=== PATIENT | female | born 1950 | race Caucasian/White ===

== ENCOUNTER 2021-02-08 11:09 | Inpatient (IN) ==
[2021-02-08 12:30] LABS: Basophils # 0.1 10*3/uL (0.0-0.2); Basophils % 0.5 % (0.0-0.8); Eosinophils # 0.1 10*3/uL (0.0-0.87); Hemoglobin 10.8 GM/DL (12.0-16.0); Immature Granulocytes % 0.4 %; Immature Granulocytes Absolute 0.04 #; Lymphocytes # 1.6 10*3/uL (1.4-4.0); Mean Corpuscular HGB Conc 30.9 GM/DL (32-36); Mean Corpuscular Volume 98.6 FL (87-102); Mean Platelet Volume 10.6 FL (9.6-12.0); Monocytes % 8.6 % (1.7-12.7); Neutrophils % 73.5 % (38.7-73.9); Platelet Count 371 T/CUMM (130-400); Red Blood Count 3.55 MC/CUMM (3.8-5.5); Red Cell Distribution Width 15.3 % (9.3-17.3); White Blood Count 10.2 T/CUMM (4-12)
[2021-02-08 12:52] LABS: Alanine Aminotransferase < 9 U/L (13-56); Albumin 2.2 G/DL (3.4-5.0); Alkaline Phosphatase 147 U/L (45-117); Aspartate Amino Transferase 21 U/L (0-37); Bilirubin,Total < 0.39 MG/DL (0.20-1.00); Blood Urea Nitrogen 12 MG/DL (7-18); Calcium 8.7 MG/DL (8.5-10.1); Carbon Dioxide 22 MMOL/L (21-32); Estimated Glom Filtration Rate 111 ML/MIN; Glucose 110 MG/DL (74-106); Osmolality,Calculated 270.1 MOS/KG (273-304); Potassium 4.1 MMOL/L (3.5-5.1); Sodium 135 MMOL/L (136-145); Total Protein 5.9 G/DL (6.4-8.2)
[2021-02-08] MEDS ORDERED: LEVOFLOXACIN 500 MG TABLET PO STA (13:01)
[2021-02-08] MEDS ORDERED: LEVOFLOXACIN INJ 500 MG/100 ML PREMIX IV STA (13:33)
[2021-02-08] MEDS ORDERED: ACETAMINOPHEN 325 MG TABLET PO PRN (14:58)
[2021-02-08] MEDS ORDERED: ONDANSETRON 4 MG/2 ML VIAL IV PRN (14:58)
[2021-02-08] MEDS ORDERED: ALBUTEROL/IPRATROPIUM 3 ML NEB RESP TX PRN (15:00)
[2021-02-08] MEDS: OXcarbazepine 300 MG TABLET PO SCH (20:51)
[2021-02-08] MEDS: LACTULOSE 20 GM/30 ML UDCUP PO SCH (20:51)
[2021-02-08] MEDS: OLANZapine 5 MG TABLET PO SCH (20:51)
[2021-02-08] MEDS: TOPIRAMATE 100 MG TABLET PO SCH (20:51)
[2021-02-08] MEDS: PHENobarbital 30 MG TABLET PO SCH (20:51)
[2021-02-08] MEDS: DOCUSATE SODIUM 100 MG CAPSULE PO SCH (20:51)
[2021-02-08] MEDS: busPIRone 10 MG TABLET PO SCH (20:51)
[2021-02-08] MEDS: TEMAZEPAM 7.5 MG CAPSULE PO SCH (20:52)
[2021-02-09 04:42] LABS: Basophils # 0.1 10*3/uL (0.0-0.2); Basophils % 0.7 % (0.0-0.8); Eosinophils # 0.3 10*3/uL (0.0-0.87); Eosinophils % 3.4 % (0.00-10.9); Hematocrit 33.9 VOL% (35.7-47.0); Hemoglobin 10.4 GM/DL (12.0-16.0); Immature Granulocytes % 0.4 %; Immature Granulocytes Absolute 0.03 #; Lymphocytes # 1.3 10*3/uL (1.4-4.0); Lymphocytes % 15.6 % (21.3-54.2); Mean Corpuscular HGB Conc 30.7 GM/DL (32-36); Mean Corpuscular Volume 99.7 FL (87-102); Mean Platelet Volume 10.5 FL (9.6-12.0); Monocytes % 6.4 % (1.7-12.7); Neutrophils % 73.5 % (38.7-73.9); Platelet Count 354 T/CUMM (130-400); Red Cell Distribution Width 15.4 % (9.3-17.3); White Blood Count 8.2 T/CUMM (4-12)
[2021-02-09 05:14] LABS: Bilirubin,Total 0.6 MG/DL (0.20-1.00); Calcium 8.4 MG/DL (8.5-10.1); Osmolality,Calculated 273.8 MOS/KG (273-304); Potassium 3.8 MMOL/L (3.5-5.1)
[2021-02-09] MEDS: NON-FORMULARY MEDICATION (Dimethicone-Znox-Vit A-D-Aloe [Zinc Oxide Diaper Cream] 1-10 % C TOP SCH (06:41)
[2021-02-09] MEDS: lisinopriL 5 MG TABLET PO SCH (09:22)
[2021-02-09] MEDS: CARBIDOPA/LEVODOPA 25-100 MG TABLET PO SCH ×3 (09:22→17:47)
[2021-02-09] MEDS: busPIRone 10 MG TABLET PO SCH ×2 (09:22→20:10)
[2021-02-09] MEDS: FLUoxetine 10 MG CAPSULE PO SCH (09:23)
[2021-02-09] MEDS: TOPIRAMATE 100 MG TABLET PO SCH ×2 (09:23→20:10)
[2021-02-09] MEDS: FOLIC ACID 1 MG TABLET PO SCH (09:23)
[2021-02-09] MEDS: OXcarbazepine 300 MG TABLET PO SCH ×2 (09:23→20:10)
[2021-02-09] MEDS: PANTOPRAZOLE 40 MG TABLET PO SCH (09:23)
[2021-02-09] MEDS: LACTULOSE 20 GM/30 ML UDCUP PO SCH ×2 (09:24→20:10)
[2021-02-09] MEDS: DOCUSATE SODIUM 100 MG CAPSULE PO SCH ×2 (09:24→20:10)
[2021-02-09] MEDS: PHENobarbital 30 MG TABLET PO SCH ×4 (10:40→20:10)
[2021-02-09] MEDS: OLANZapine 5 MG TABLET PO SCH (20:10)
[2021-02-09] MEDS: TEMAZEPAM 7.5 MG CAPSULE PO SCH (20:11)
[2021-02-10 06:16] LABS: Basophils # 0.1 10*3/uL (0.0-0.2); Basophils % 0.8 % (0.0-0.8); Eosinophils # 0.2 10*3/uL (0.0-0.87); Eosinophils % 3.3 % (0.00-10.9); Hematocrit 34.1 VOL% (35.7-47.0); Hemoglobin 10.8 GM/DL (12.0-16.0); Immature Granulocytes % 0.3 %; Immature Granulocytes Absolute 0.02 #; Lymphocytes # 1.5 10*3/uL (1.4-4.0); Lymphocytes % 20.7 % (21.3-54.2); Mean Corpuscular HGB Conc 31.7 GM/DL (32-36); Mean Corpuscular Volume 99.1 FL (87-102); Mean Platelet Volume 10.5 FL (9.6-12.0); Neutrophils % 67.9 % (38.7-73.9); Platelet Count 352 T/CUMM (130-400); Red Blood Count 3.44 MC/CUMM (3.8-5.5); Red Cell Distribution Width 15.5 % (9.3-17.3); White Blood Count 7.3 T/CUMM (4-12)
[2021-02-10 06:30] LABS: Alanine Aminotransferase 13 U/L (13-56); Alkaline Phosphatase 197 U/L (45-117); Aspartate Amino Transferase 39 U/L (0-37); Bilirubin,Total < 0.39 MG/DL (0.20-1.00); Blood Urea Nitrogen 16 MG/DL (7-18); Calcium 8.6 MG/DL (8.5-10.1); Carbon Dioxide 23 MMOL/L (21-32); Estimated Glom Filtration Rate 103 ML/MIN; Glucose 112 MG/DL (74-106); Potassium 3.9 MMOL/L (3.5-5.1); Sodium 136 MMOL/L (136-145); Total Protein 6.1 G/DL (6.4-8.2)
[2021-02-10] MEDS: NON-FORMULARY MEDICATION (Dimethicone-Znox-Vit A-D-Aloe [Zinc Oxide Diaper Cream] 1-10 % C TOP SCH (06:49)
[2021-02-10] MEDS: PANTOPRAZOLE 40 MG TABLET PO SCH (08:53)
[2021-02-10] MEDS: lisinopriL 5 MG TABLET PO SCH (08:53)
[2021-02-10] MEDS: PHENobarbital 30 MG TABLET PO SCH ×4 (08:53→20:29)
[2021-02-10] MEDS: FLUoxetine 10 MG CAPSULE PO SCH (08:53)
[2021-02-10] MEDS: CARBIDOPA/LEVODOPA 25-100 MG TABLET PO SCH ×3 (08:54→18:02)
[2021-02-10] MEDS: LACTULOSE 20 GM/30 ML UDCUP PO SCH ×2 (08:54→20:29)
[2021-02-10] MEDS: FOLIC ACID 1 MG TABLET PO SCH (08:54)
[2021-02-10] MEDS: DOCUSATE SODIUM 100 MG CAPSULE PO SCH ×2 (08:54→20:29)
[2021-02-10] MEDS: TOPIRAMATE 100 MG TABLET PO SCH ×2 (08:54→20:29)
[2021-02-10] MEDS: busPIRone 10 MG TABLET PO SCH ×2 (08:54→20:29)
[2021-02-10] MEDS: OXcarbazepine 300 MG TABLET PO SCH ×2 (08:57→20:29)
[2021-02-10] MEDS: TEMAZEPAM 7.5 MG CAPSULE PO SCH (20:29)
[2021-02-10] MEDS: OLANZapine 5 MG TABLET PO SCH (20:29)
[2021-02-11 06:25] LABS: Basophils # 0.1 10*3/uL (0.0-0.2); Basophils % 0.8 % (0.0-0.8); Eosinophils # 0.3 10*3/uL (0.0-0.87); Eosinophils % 3.3 % (0.00-10.9); Hematocrit 33.9 VOL% (35.7-47.0); Hemoglobin 10.3 GM/DL (12.0-16.0); Immature Granulocytes % 0.4 %; Immature Granulocytes Absolute 0.03 #; Lymphocytes # 1.6 10*3/uL (1.4-4.0); Lymphocytes % 20.7 % (21.3-54.2); Mean Corpuscular HGB Conc 30.4 GM/DL (32-36); Mean Corpuscular Volume 99.7 FL (87-102); Mean Platelet Volume 10.8 FL (9.6-12.0); Neutrophils % 66.8 % (38.7-73.9); Platelet Count 340 T/CUMM (130-400); Red Cell Distribution Width 15.4 % (9.3-17.3); White Blood Count 7.9 T/CUMM (4-12)
[2021-02-11 06:53] LABS: Albumin 2.1 G/DL (3.4-5.0); Bilirubin,Total 0.4 MG/DL (0.20-1.00); Calcium 8.7 MG/DL (8.5-10.1); Osmolality,Calculated 272.1 MOS/KG (273-304); Potassium 3.6 MMOL/L (3.5-5.1); Total Protein 6.2 G/DL (6.4-8.2)
[2021-02-11] MEDS: NON-FORMULARY MEDICATION (Dimethicone-Znox-Vit A-D-Aloe [Zinc Oxide Diaper Cream] 1-10 % C TOP SCH (07:20)
[2021-02-11] MEDS: LACTULOSE 20 GM/30 ML UDCUP PO SCH ×2 (08:55→20:44)
[2021-02-11] MEDS: FOLIC ACID 1 MG TABLET PO SCH (08:55)
[2021-02-11] MEDS: DOCUSATE SODIUM 100 MG CAPSULE PO SCH ×2 (08:55→20:40)
[2021-02-11] MEDS: PHENobarbital 30 MG TABLET PO SCH ×4 (08:55→20:40)
[2021-02-11] MEDS: FLUoxetine 10 MG CAPSULE PO SCH (08:56)
[2021-02-11] MEDS: busPIRone 10 MG TABLET PO SCH ×2 (08:56→20:40)
[2021-02-11] MEDS: OXcarbazepine 300 MG TABLET PO SCH ×2 (08:56→20:40)
[2021-02-11] MEDS: CARBIDOPA/LEVODOPA 25-100 MG TABLET PO SCH ×3 (08:56→17:28)
[2021-02-11] MEDS: lisinopriL 5 MG TABLET PO SCH (08:56)
[2021-02-11] MEDS: PANTOPRAZOLE 40 MG TABLET PO SCH (08:56)
[2021-02-11] MEDS: TOPIRAMATE 100 MG TABLET PO SCH ×2 (08:56→20:39)
[2021-02-11 11:04] LABS: PT Patient Result 11.4 SECS (10.5-12.0); Partial Thromboplastin Time 33.3 SECS (23.8-32.1)
[2021-02-11] MEDS ORDERED: DIAZEPAM 5 MG TABLET PO ONE (11:14)
[2021-02-11] MEDS: OLANZapine 5 MG TABLET PO SCH (20:40)
[2021-02-11] MEDS: TEMAZEPAM 7.5 MG CAPSULE PO SCH (20:40)
[2021-02-12 04:35] LABS: Alanine Aminotransferase < 9 U/L (13-56); Alkaline Phosphatase 175 U/L (45-117); Aspartate Amino Transferase 19 U/L (0-37); Blood Urea Nitrogen 17 MG/DL (7-18); Calcium 8.2 MG/DL (8.5-10.1); Carbon Dioxide 24 MMOL/L (21-32); Estimated Glom Filtration Rate 96 ML/MIN; Glucose 112 MG/DL (74-106); Osmolality,Calculated 275.8 MOS/KG (273-304); Potassium 3.7 MMOL/L (3.5-5.1); Sodium 137 MMOL/L (136-145); Total Protein 5.8 G/DL (6.4-8.2)
[2021-02-12] MEDS: NON-FORMULARY MEDICATION (Dimethicone-Znox-Vit A-D-Aloe [Zinc Oxide Diaper Cream] 1-10 % C TOP SCH (07:44)
[2021-02-12] MEDS ORDERED: propofoL 200 MG/20 ML VIAL IV ONE (09:39)
[2021-02-12] MEDS ORDERED: LIDOCAINE 2% 5 ML VIAL ONE (09:39)
[2021-02-12] MEDS ORDERED: MIDAZOLAM 2 MG/2 ML VIAL ONE (09:40)
[2021-02-12] MEDS ORDERED: fentaNYL 100 MCG/2 ML VIAL ONE (09:40)
[2021-02-12] MEDS ORDERED: HEPARIN 5,000 UNIT/1 ML VIAL ONE (10:00)
[2021-02-12] MEDS ORDERED: BUPIVACAINE MPF 0.25% 30 ML VIAL ONE (10:00)
[2021-02-12] MEDS ORDERED: TISSUE ADHESIVE 1 EACH APPLICATOR TOP ONE (10:00)
[2021-02-12] MEDS ORDERED: LIDOCAINE 1%/EPI INJ 20 ML VIAL ONE (10:01)
[2021-02-12] MEDS ORDERED: SODIUM CHLORIDE 0.9% 100 ML IV ONE (10:39)
[2021-02-12] MEDS: DOCUSATE SODIUM 100 MG CAPSULE PO SCH ×2 (14:01→20:48)
[2021-02-12] MEDS: TOPIRAMATE 100 MG TABLET PO SCH ×2 (14:02→20:48)
[2021-02-12] MEDS: busPIRone 10 MG TABLET PO SCH ×2 (14:03→20:48)
[2021-02-12] MEDS: PANTOPRAZOLE 40 MG TABLET PO SCH (14:03)
[2021-02-12] MEDS: PHENobarbital 30 MG TABLET PO SCH ×4 (14:03→20:48)
[2021-02-12] MEDS: FOLIC ACID 1 MG TABLET PO SCH (14:03)
[2021-02-12] MEDS: OXcarbazepine 300 MG TABLET PO SCH ×2 (14:03→20:47)
[2021-02-12] MEDS: CARBIDOPA/LEVODOPA 25-100 MG TABLET PO SCH ×3 (14:03→16:17)
[2021-02-12] MEDS: LACTULOSE 20 GM/30 ML UDCUP PO SCH ×2 (14:03→20:48)
[2021-02-12] MEDS: FLUoxetine 10 MG CAPSULE PO SCH (14:03)
[2021-02-12] MEDS: lisinopriL 5 MG TABLET PO SCH (14:03)
[2021-02-12] MEDS: TEMAZEPAM 7.5 MG CAPSULE PO SCH (20:47)
[2021-02-12] MEDS: OLANZapine 5 MG TABLET PO SCH (20:47)
[2021-02-13] MEDS: NON-FORMULARY MEDICATION (Dimethicone-Znox-Vit A-D-Aloe [Zinc Oxide Diaper Cream] 1-10 % C TOP SCH (06:00)
[2021-02-13 06:20] LABS: Basophils # 0.1 10*3/uL (0.0-0.2); Basophils % 0.6 % (0.0-0.8); Eosinophils # 0.3 10*3/uL (0.0-0.87); Hematocrit 33.1 VOL% (35.7-47.0); Hemoglobin 9.9 GM/DL (12.0-16.0); Immature Granulocytes % 0.4 %; Immature Granulocytes Absolute 0.03 #; Lymphocytes # 1.4 10*3/uL (1.4-4.0); Mean Corpuscular HGB Conc 29.9 GM/DL (32-36); Mean Corpuscular Volume 101.8 FL (87-102); Mean Platelet Volume 10.4 FL (9.6-12.0); Monocytes % 11.1 % (1.7-12.7); Neutrophils % 67.9 % (38.7-73.9); Platelet Count 290 T/CUMM (130-400); Red Blood Count 3.25 MC/CUMM (3.8-5.5); Red Cell Distribution Width 15.6 % (9.3-17.3); White Blood Count 8.2 T/CUMM (4-12)
[2021-02-13 08:45] VITALS: BP 128/54
[2021-02-13] MEDS: CARBIDOPA/LEVODOPA 25-100 MG TABLET PO SCH (09:21)
[2021-02-13] MEDS: TOPIRAMATE 100 MG TABLET PO SCH (09:21)
[2021-02-13] MEDS: LACTULOSE 20 GM/30 ML UDCUP PO SCH (09:21)
[2021-02-13] MEDS: PANTOPRAZOLE 40 MG TABLET PO SCH (09:22)
[2021-02-13] MEDS: DOCUSATE SODIUM 100 MG CAPSULE PO SCH (09:22)
[2021-02-13] MEDS: FOLIC ACID 1 MG TABLET PO SCH (09:22)
[2021-02-13] MEDS: busPIRone 10 MG TABLET PO SCH (09:22)
[2021-02-13] MEDS: OXcarbazepine 300 MG TABLET PO SCH (09:22)
[2021-02-13] MEDS: PHENobarbital 30 MG TABLET PO SCH (09:23)
[2021-02-13] MEDS: lisinopriL 5 MG TABLET PO SCH (09:23)
[2021-02-13] MEDS: FLUoxetine 10 MG CAPSULE PO SCH (09:23)
== END 2021-02-13 10:37 | DRG 755 ==
LOC: EDUNIT# → EDBD → N.EDINP 11:09 → N.ED 11:09 → N.2W 18:10
PROVIDERS: ADMIT Internal Medicine; ATTEND Internal Medicine